=== PATIENT | female | born 1960 | race Caucasian/White ===

== ENCOUNTER 2023-10-19 11:26 | Outpatient (CLI) | payer OTHER | END 2023-10-19 11:27 | disposition home or self-care (01) | LOC: NAV RAD 11:26 | PROVIDERS: ATTEND Student in an Organized Health Care Education/Training Program | DX: M25.561 Pain in right knee (principal); M25.562 Pain in left knee; M17.0 Bilateral primary osteoarthritis of knee; M25.462 Effusion, left knee; M25.461 Effusion, right knee ==

== ENCOUNTER 2025-07-08 10:32 | Outpatient (CLI) | payer OTHER | END 2025-07-08 10:33 | disposition home or self-care (01) | LOC: NAV RAD 10:32 | DX: M25.551 Pain in right hip (principal); M16.11 Unilateral primary osteoarthritis, right hip ==